=== PATIENT | male | born 1940 | race Caucasian/White ===

== ENCOUNTER → 2016-09-26 | Outpatient (CLI) | payer OTHER ==
[~2016-09-26] MED LIST: ALLOPURINOL300 MG PO; ASPIRIN81 M2 PO; HYTRIN PO; LOPID600 MG PO; LOPRESSOR PO; MULTI-DAY VITA1 EACH PO; WARFARIN SODIUM1 MG PO
--- NOTE | ~2016-09-26 | CO ---
Unit #: [id number] #: [id number] Patient: CHANG MORAN [id number] [address] [address] [id number] O MR#: [id number] NAME: CHANG MORAN. ROOM: Age: Sex: M Admission Date: 09/26/2016 : 1940 Attending Physician: Ricky Vaughn M.D. Primary Care Physician: Sonny Paulino M.D. Consultation Date: 09/26/2016 CONSULTATION REPORT DATE OF ANTICIPATED ADMISSION/PROCEDURE September 30, 2016 REASON FOR CONSULTATION Preoperative medical evaluation prior to right total knee I and D with poly exchange. HISTORY OF PRESENT ILLNESS Patient is a 76-year-old male who presented to preprocedural screening for the reason as indicated above. He reports right knee pain at the time of this interview. He denies chest, arm, neck, jaw, or back pain or pressure. He denies lightheadedness, dizziness, presyncope, syncope, or palpitations. He denies shortness of air, orthopnea, paroxysmal nocturnal dyspnea, and sleep apnea. He denies history of myocardial infarction, CVA, or TIA, but does report a history of congestive heart failure. He is established with Dr. Lin. He also has a history of permanent atrial fibrillation on chronic Coumadin therapy. Dr. Lin is not aware that he is planning to have the above-referenced procedure, and he has not received preoperative cardiac clearance. PAST MEDICAL HISTORY 1. Osteoarthritis. 2. Gout. 3. Hyperlipidemia. 4. Hypertension. 5. Benign prostatic hypertrophy. 6. Permanent atrial fibrillation on chronic Coumadin therapy. 7. Kidney disease not followed by a repair manager. 8. Congestive heart failure established with Dr. Lin. 9. Anemia. 10. Degenerative disk disease. 11. Risk factors for PREMA without sleep apnea testing. PAST SURGICAL HISTORY 1. Bilateral total knee arthroplasty. 2. Right knee arthroplasty. 3. Vasectomy. 4. Tonsillectomy and adenoidectomy. Please note, patient denies a personal and family history of complications to anesthesia. ALLERGIES Denies latex allergy and drug allergies. Unit #: [id number] #: [id number] Patient: CHANG MORAN CURRENT MEDICATIONS 1. Allopurinol 300 mg p.o. daily. 2. Aspirin 81 mg p.o. daily. 3. Lopid 600 mg p.o. b.i.d. 4. Lopressor 50 mg p.o. at bedtime. 5. Multivitamin 1 p.o. daily. 6. Hytrin 5 mg p.o. every morning. 7. Warfarin sodium 1 mg p.o. daily. SOCIAL HISTORY Denies tobacco use, drinks six beers per month, and denies illicit drug use. FAMILY HISTORY Per review of Dr. Vaughn's office note, no known family history. REVIEW OF SYSTEMS Complains of right knee pain. A 10-point review of systems was conducted and otherwise negative except as indicated under History of Present Illness above. PHYSICAL EXAMINATION GENERAL: A 76-year-old male awake, alert, and in no acute distress. VITAL SIGNS: Temperature 97.3, heart rate 95, respiratory rate 20, blood pressure 123/77, and oxygen saturation 97% on room air. HEENT: Atraumatic and normocephalic. Sclerae are anicteric. No discharge from eyes, ears, or nares. LYMPHATICS: No preauricular, postauricular, anterior or posterior cervical adenopathy. Prominent bilateral tonsillar lymph nodes without tenderness or fixation. No supraclavicular or infraclavicular adenopathy. ENDOCRINE: No thyromegaly, thyroid nodules, or tenderness. RESPIRATORY: Clear to auscultation all wynn bilaterally without wheezes, rhonchi, or rales. CARDIOVASCULAR: S1 and S2, regular rate and rhythm, without murmur or rub. GASTROINTESTINAL: Bowel sounds positive x4. Soft, nontender, and nondistended. EXTREMITIES: Right knee edema with warmth and tenderness at approximately 2.5 cm area at proximal edge of healed knee incision. Strength 5 over 5 all extremities bilaterally to flexion and extension. NEUROLOGIC: Alert and oriented x3. Speech clear. Cranial nerves II-XII grossly intact. Follows commands. DIAGNOSTIC STUDIES LABORATORY: WBC 7.3, hemoglobin 11.5, hematocrit 37.2, and platelet count 274,000. Sedimentation rate 86,000. Sodium 140, potassium 3.9, chloride 103, CO2 of 25, glucose 97, BUN 24, creatinine 1.5, calcium 9.3, AST 19, ALT 10, alkaline phosphatase 64, bilirubin total 0.6, total protein 6.3, and albumin 2.6. CRP 5.2. Blood type A positive. Antibody screen negative. PT 13.4 and INR 1.3. Urinalysis with protein 3+, culture not indicated. MRSA nasal swab screen report pending at this time. IMAGING: Portable chest x-ray August 13, 2016, impression: Cardiomegaly with chronic changes about the chest. No pneumonia or cognitive changes noted. CARDIOLOGY: A 12-lead EKG from August 14, 2016, atrial fibrillation with Unit #: [id number] #: [id number] Patient: CHANG MORAN controlled ventricular response, confirmed by Dr. Dawn. IMPRESSION AND PLAN The patient is a 76-year-old male who presented to preprocedural screening for: 1. Preoperative medical evaluation prior to I and D of right total knee arthroplasty with poly exchange procedure. The patient's Ramirez Revised Cardiac Risk Index is equal to 1%. This represents the patient's perioperative risk of cardiac , fatal or nonfatal myocardial infarction, arrhythmia, and/or pulmonary edema. This has been discussed in detail with the patient, and he wishes to proceed with surgery as scheduled at this time. 2. Gout. 3. Hyperlipidemia. 4. Hypertension. 5. Benign prostatic hypertrophy. 6. Permanent atrial fibrillation, on chronic Coumadin. Patient's INR is 1.3 today. Perioperative Coumadin management is per Dr. Vaughn's office. Please note, this patient is scheduled for surgery on September 30, 2016, and weaning of Coumadin prior to surgery is performed by Dr. Vaughn's office. 7. History of kidney disease with unknown baseline. Patient does not see a repair manager. Will monitor and consult Nephrology postoperatively. 8. History of congestive heart failure. The patient is established with Dr. Lin. Given the patient's permanent atrial fibrillation on chronic Coumadin therapy, as well as history of congestive heart failure, I requested that the patient obtain preoperative cardiac clearance prior to procedure on Friday. This has been discussed with the patient, and he is in agreement with the plan. 9. Anemia. Patient's hemoglobin and hematocrit are stable, although patient does not know how long he has been anemic and states he has never been told he has been anemic. Further workup preoperatively per order of Dr. Vaughn. 10. Degenerative disk disease. 11. Risk factors for obstructive sleep apnea. Place on obstructive sleep apnea protocol postoperatively. 12. Code status is Do Not Resuscitate per patient wishes. Thank you for allowing us to participate in the care of this patient. We will gladly follow the patient for postoperative medical management pending preoperative cardiac clearance, recommendations by Dr. Vaughn for anemia workup prior to surgery, and order of Dr. Vaughn. Dictated by... Jennifer Rivas A.P.R.N. for Liam Montano/maddi TD: 09/26/2016 17:40 JOB #: [id number] Unit #: [id number] #: [id number] Patient: CHANG MORAN CONSULTATION REPORT Page 1 of 1 X Jennifer Rivas APRN X CONSULTATION REPORT
[2016-09-26 11:40] LABS: HEMATOCRIT 37.2 % (38.0-50.0); HEMOGLOBIN 11.5 gm/dL (13.0-16.0); MEAN CELL VOLUME 88.2 FL (83-96); MEAN CORPUSCULAR HEMOGLOBIN 27.3 PG (28-34); MEAN PLATELET VOLUME 8.5 FL (6.5-11.5); RED BLOOD COUNT 4.22 X10e (3.90-5.60); RED CELL DISTRIBUTION WIDTH 18.4 % (11.0-15.5); WHITE BLOOD COUNT 7.3 X10e3 (4.0-10.5)
[2016-09-26 11:57] LABS: INR 1.3; PROTHROMBIN TIME (PATIENT) 13.4 SECONDS (9.6-11.5)
[2016-09-26 11:58] LABS: ALBUMIN SERUM 2.6 g/dL (3.5-5.0); BILIRUBIN,TOTAL 0.6 mg/dL (0.2-2.0); CALCIUM SERUM 9.3 mg/dL (8.4-10.2); CREATININE SERUM 1.5 mg/dL (0.6-1.4); POTASSIUM 3.9 mmol/L (3.5-5.1); PROTEIN TOTAL SERUM 6.3 g/dL (6.0-8.3)
[2016-09-26 12:07] LABS: URINE APPEARANCE CLEAR; URINE BILIRUBIN NEG (NEG); URINE BLOOD NEG (NEG); URINE COLOR YELLOW; URINE GLUCOSE NEG (NEG); URINE KETONE NEG (NEG); URINE LEUKOCYTE ESTERASE NEG (NEG); URINE NITRATE NEG (NEG); URINE PROTEIN 3+ (NEG); URINE SPECIFIC GRAVITY 1.017 (1.003-1.035); URINE UROBILINOGEN 0.2 MG/DL (NEG)
[2016-09-26 12:11] LABS: URINE BACTERIA AUWI NEG (NEGATIVE); URINE SQUAMOUS EPITHELIAL CELL NONE SEEN /[HPF]; UWBCS1 AUWI 0-2 (0-5)
[2016-09-26 12:16] LABS: CULTURE INDICATED? NO; URINE SOURCE CLEAN CATCH
== END | disposition home or self-care (01) ==
LOC: CAMB 10:40
PROVIDERS: Orthopaedic Surgery
DX: Z01.812 Encounter for preprocedural laboratory examination (principal); T84.53XA Infection and inflammatory reaction due to internal right knee prosthesis, initial encounter
CPT/HCPCS: 36415; 80053; 81003; 85027; 85610; 85652; 86140; 86850; 86900; 86901; 87070